=== PATIENT | female | born 1955 | race Caucasian/White ===

== ENCOUNTER 2025-05-01 18:58 | Inpatient (IN) | payer MEDICARE ==
[~2025-05-01] VITALS: Ht 160 cm; Wt 53.5 kg
[2025-05-01] MEDS ORDERED: ACETAMINOPHEN *IV* 1,000 MG in IV 1 EA IV PRN (20:05)
[2025-05-01] MEDS ORDERED: MORPHINE 2 MG/ML 1 ML VIAL IV PRN (20:05)
[2025-05-01] MEDS ORDERED: MORPHINE 4 MG/ML 1 ML VIAL IV PRN (20:05)
[2025-05-01 21:15] VITALS: BP 132/90; TEMP 97.9; O2SAT 100
[2025-05-01 22:06] LABS: PLATELET COUNT, AUTOMATED 204 10^3/uL (150-450)
[2025-05-01 22:32] LABS: ALT/SGPT 18.0 U/L (7.0-40); AST/SGOT 21.0 U/L (<34); CALCIUM LEVEL 8.5 MG/DL (8.3-10.6); CARBON DIOXIDE LEVEL 26.0 MMOL/L (20-31); CHLORIDE LEVEL 107.0 MMOL/L (98-107); CREATININE FOR GFR 0.82 MG/DL (0.55-1.30); GLOMERULAR FILTRATION RATE 76.4 (>39); POTASSIUM SERUM 3.8 MMOL/L (3.5-5.1); SODIUM LEVEL 144.0 MMOL/L (136-145)
[2025-05-01] MEDS ORDERED: MIRA3350 PO (22:39)
[2025-05-01] MEDS ORDERED: ABIL1TAB11 PO (22:39)
[2025-05-01] MEDS ORDERED: LUBI24CA PO (22:39)
[2025-05-01] MEDS ORDERED: MAGN250T17 PO (22:39)
[2025-05-01] MEDS ORDERED: DESV50TA3 PO (22:39)
[2025-05-01] MEDS ORDERED: HOME MED LIST COMPLETE! XX SCH (22:40)
[2025-05-02] MEDS: LR 1,000 ML IV SCH (00:02)
[2025-05-02] MEDS ORDERED: ONDANSETRON 4MG 2ML VIAL IV PRN (00:10)
[2025-05-02 01:13] VITALS: BP 125/86; TEMP 97.9; O2SAT 96
[2025-05-02 04:11] VITALS: BP 123/84; TEMP 98.2; O2SAT 97
[2025-05-02 06:30] LABS: PLATELET COUNT, AUTOMATED 179 10^3/uL (150-450)
[2025-05-02 06:59] LABS: CALCIUM LEVEL 8.2 MG/DL (8.3-10.6); CARBON DIOXIDE LEVEL 29.0 MMOL/L (20-31); CHLORIDE LEVEL 107.0 MMOL/L (98-107); CREATININE FOR GFR 0.86 MG/DL (0.55-1.30); GLOMERULAR FILTRATION RATE 72.2 (>39); POTASSIUM SERUM 3.9 MMOL/L (3.5-5.1); SODIUM LEVEL 144.0 MMOL/L (136-145)
[2025-05-02 08:01] VITALS: BP 126/86; TEMP 98.1; O2SAT 97
[2025-05-02 12:05] VITALS: BP 116/73; TEMP 98.8; O2SAT 96
[2025-05-02 16:14] VITALS: BP 125/79; TEMP 97.7; O2SAT 98
[2025-05-02 20:00] VITALS: BP 126/81; TEMP 98.4; O2SAT 97
[2025-05-02] MEDS ORDERED: LUBIPROSTONE 24 MCG PO SCH (21:00)
[2025-05-03] VITALS: BP 126/82; TEMP 98.1; O2SAT 100
[2025-05-03 04:37] VITALS: BP 125/82; TEMP 97.3; O2SAT 100
[2025-05-03 06:52] LABS: PLATELET COUNT, AUTOMATED 173 10^3/uL (150-450)
[2025-05-03 07:22] LABS: CALCIUM LEVEL 8.7 MG/DL (8.3-10.6); CARBON DIOXIDE LEVEL 30.0 MMOL/L (20-31); CHLORIDE LEVEL 104.0 MMOL/L (98-107); CREATININE FOR GFR 0.86 MG/DL (0.55-1.30); GLOMERULAR FILTRATION RATE 72.2 (>39); POTASSIUM SERUM 3.6 MMOL/L (3.5-5.1); SODIUM LEVEL 144.0 MMOL/L (136-145)
[2025-05-03 08:00] VITALS: BP 130/80; TEMP 98.2; O2SAT 98
== END 2025-05-03 11:17 | disposition home or self-care (01) | DRG 395 ==
LOC: M MSPAV 21:15
PROVIDERS: ADMIT Student in an Organized Health Care Education/Training Program; ATTEND General Practice
DX: K40.30 Unilateral inguinal hernia, with obstruction, without gangrene, not specified as recurrent (principal); K58.1 Irritable bowel syndrome with constipation; F41.9 Anxiety disorder, unspecified; Z90.79 Acquired absence of other genital organ(s); Z79.899 Other long term (current) drug therapy